=== PATIENT | male | born 1945 | race Caucasian/White ===

== ENCOUNTER 2018-09-15 10:23 | Emergency (ER) | payer MEDICARE, BC ==
[2018-09-15 10:49] VITALS: BP 157/81
--- NOTE | 2018-09-15 10:59 | UC ---
Lower Extremity/Ankle HPI - HPI Summary HPI Summary: 2 day hx of increasing pain and swelling L foot. if began near base of great toe and now involves entire top of foot. no injury or fever. no hx gout. using a walking and stick and cane due to pain with walking. - History of Current Complaint Chief Complaint: UCLowerExtremity Stated Complaint: LEFT FOOT PAIN Time Seen by Provider: 09/15/18 10:51 Hx Obtained From: Patient, Family/[employer] T[employer] Onset/Duration: Gradual Onset Pain Intensity: 8 Aggravating Factor(s): Standing, Ambulation Alleviating Factor(s): Rest Able to Bear Weight: Yes - but very painful - Risk Factors Gout Risk Factors: Age Over 40, Diabetes, Hypertension Septic Arthritis Risk Factor: Negative - Allergies/Home Medications Allergies/Adverse Reactions: Allergies Allergy/AdvReac Type Severity Reaction Status Date / Time No Known Allergies Allergy Verified 09/15/18 10:49 Home Medications: Home Medications Liraglutide [Victoza] 18 mg SC DAILY 09/15/18 [History Confirmed 09/15/18] Lisinopril 40 mg PO DAILY 09/15/18 [History Confirmed 09/15/18] Metformin HCl 1,000 mg PO BID 09/15/18 [History Confirmed 09/15/18] glipiZIDE [Glipizide Xl] 10 mg PO DAILY 09/15/18 [History Confirmed 09/15/18] PMH/Surg Hx/FS Hx/Imm Hx Endocrine History: Diabetes - type II Cardiovascular History: Hypertension - Surgical History Surgical History: Yes Surgery Procedure, Year, and Place: left hip replacement-2008, hernia repair - Social History Occupation: Retired Lives: With Family Alcohol Use: None Substance Use Type: None Smoking Status (MU): Former Smoker - Immunization History Vaccination Up to Date: Yes Review of Systems All Other Systems Reviewed And Are Negative: No Constitutional: Negative: Fever, Chills Skin: Negative: Rash Respiratory: Negative: Shortness Of Breath Cardiovascular: Negative: Chest Pain Musculoskeletal: Positive: Edema - L foot. Negative: Calf Tenderness, Decreased ROM Neurological: Negative: Weakness, Paresthesia Physical Exam Triage Information Reviewed: Yes Appearance: Well-Appearing Vital Signs: Initial Vital Signs Temp 98 F 09/15/18 10:38 Pulse 83 09/15/18 10:38 Resp 16 09/15/18 10:38 BP 157/81 09/15/18 10:38 Pulse Ox 97 09/15/18 10:38 Vital Signs Reviewed: Yes Eyes: Positive: Conjunctiva Clear Neck: Positive: Supple Respiratory: Positive: Lungs clear, Normal breath sounds Cardiovascular: Positive: RRR, No Murmur Abdomen Description: Positive: Nontender Musculoskeletal: Positive: Other: - LLE: hip and knee non tender. achilles and calf are non tender. ankle without tenderness of swelling. foot has mild dorsal swelling. central dorsal surface is warm and slightly pink. the dorsal central foot and arch are tender. the foot has full s/v/m function. pt c/o pain with weight bearing. Neurological: Positive: Alert Psychological: Positive: Age Appropriate Behavior Skin Exam: Normal Diagnostics - Radiology No standard instances Radiology Interpretation Completed By: Radiologist - IMPRESSION: Degenerative changes of the third metatarsal phalangeal joint. Lower Extremity Course/Dx - Differential Dx/Diagnosis Differential Diagnosis/HQI/PQRI: Other - GOUT VS CELLULITIS VS STRESS FX. WILL TX NSAID, SPLINT, KEFLEX AND CLOSE F/U. NO CONCERN FOR SEPTIC JOINT. Provider Diagnosis: Left foot pain Discharge - Sign-Out/Discharge Documenting (check all that apply): Patient Departure All imaging exams completed and their final reports reviewed: Yes - Discharge Plan Condition: Stable Disposition: HOME Prescriptions: Cephalexin CAP* [Keflex CAP*] 500 mg PO TID 10 Days #30 cap Indomethacin CAP* [Indocin CAP*] 50 mg PO TID 5 Days #15 cap Patient Education Materials: Cellulitis (ED), Gout (ED) Referrals: Juni MOREIRA,Florentin Garcia [Primary Care Provider] - 3 Days Additional Instructions: GO TO THE ER FOR ANY WORSENING - Billing Disposition and Condition Condition: STABLE Disposition: Home
[2018-09-15] MEDS ORDERED: Ibuprofen ADULT LIQ* 600 MG/30 ML UDC PO ONE (11:02)
== END 2018-09-15 12:11 | disposition home or self-care (01) ==
LOC: UCCORT 10:23
DX: M79.672 Pain in left foot (principal); M19.072 Primary osteoarthritis, left ankle and foot; E11.9 Type 2 diabetes mellitus without complications; I10 Essential (primary) hypertension; Z79.84 Long term (current) use of oral hypoglycemic drugs; Z79.899 Other long term (current) drug therapy; Z87.891 Personal history of nicotine dependence
CPT/HCPCS: 99202; A9270-GY; G0463